=== PATIENT | female | born 1950 | race Caucasian/White ===

== ENCOUNTER 2022-03-07 10:08 | Emergency (ER) | payer MEDICARE, SELFPAY ==
[2022-03-07 10:20] VITALS: BP 224/128; PULSE 70; RESP 18; TEMP 36.6; O2SAT 96; BMI 26.9
--- NOTE | 2022-03-07 10:48 | CRLHL7_ITS ---
For Patients: As a result of the Century Cures Act, medical imaging exams and procedure reports are released immediately into your electronic medical record. You may view this report before your referring provider. If you have questions, please contact your health care provider. Indication: Injury and pain Technique: Right wrist 3 view Comparison: None Findings: There is a mildly displaced and slightly comminuted intra-articular fracture of the distal radius involving the metaphysis with slight dorsal impaction as there is neutral alignment of the distal radial articular surface. Small density adjacent to the ulnar styloid. Chronic deformity of the lunate with possible associated fracture, possibly chronic. Multifocal degenerative joint disease. Impression: Acute intra-articular distal radial metaphyseal fracture. Deformity of the lunate which may represent a chronic fracture deformity. Dictated by Nba Parada MD @ 03/07/2022 12:04:06 PM (Electronically Signed)
[2022-03-07] MEDS: ACETAMINOPHEN 500 MG TABLET 1000 MG PO (11:16)
[2022-03-07 12:21] VITALS: BP 223/116; RESP 20; TEMP 36; O2SAT 96
--- NOTE | 2022-03-07 12:41 | ED_ITS ---
HPI - Extremity Injury (Upper) General Date Seen: 03/07/22 Chief Complaint: Extremity Pain/Injury, Upper Stated Complaint: Fell, injured right hand Time Seen by Provider: 03/07/22 10:13 Source: patient and family Mode of arrival: ambulatory Limitations: no limitations History of Present Illness HPI narrative: Patient is a janine 71-year-old female who is the seen today as she had a FOOSH type mechanism of injury to her right hand, she was out at slippery today, and fell on her right dominant hand. She notices swelling on the dorsum part, and inability to really move her wrist, she does not have any injury to her elbow or shoulder or neck, there is no loss of consciousness, or any other injury. This occurred proximally being an hour before coming in MD complaint: injury to: right Onset (ago): hour(s) Other Extremity Injury: Right: wrist Other injuries: none Hand dominance: Right Place: home Severity: mild Relieving factors: none Exacerbating factors: none Context: fall Associated symptoms: denies other symptoms Treatments prior to arrival: cold therapy Related Data Home Medications Medication Instructions Recorded Confirmed lisinopril 40 mg tablet mg 03/07/22 metoprolol succinate 50 mg mg PO 03/07/22 tablet,extended release 24 hr pravastatin 80 mg tablet mg 03/07/22 Allergies Allergy/AdvReac Type Severity Reaction Status Date / Time No Known Drug Allergies Allergy Verified 03/07/22 10:25 Review of Systems Status of ROS: Reports: 6 or more systems reviewed and unremarkable except as noted in History and below PFSH PFS Social History Smoking Status: Former smoker Do you use any of these nicotine containing products: None Second hand tobacco smoke exposure: No How often do you have a drink containing alcohol: never How often do you have six or more drinks on one occasion: Never AUDIT-C Alcohol total score: 0 Non-prescribed substance use: denies use Exam Narrative: Exam Narrative: Patient is a very nice 8-year-old female, is seen in stabilization room 2, her right wrist, is her point of tenderness, there is some dorsal swelling, and really no angulation noted. Her tank charger strength is normal in her right-sided finger abduction 1st finger thumb opposition are all normal radial and brachial pulses are normal, cap refill normal her sensation is all normal, her elbow has full range of motion of flexion extension supination pronation as does her right shoulder, and she has move normal movement of her cervical spine. Const: Vital Signs, click to edit/add: Vital Signs - 24 hr 03/07/22 10:20 03/07/22 12:21 Temperature 98 F 96.8 F L Pulse Rate [Pulse Oximeter] 70 Respiratory Rate 18 20 Blood Pressure [Le ft Upper Arm] 224/128 H 223/116 H Pulse Oximetry 96 96 Oxygen Delivery Me thod Room Air Course Course Hospital Course: X-ray show a nondisplaced non angulated right distal for I radial fracture, there is a question of irregularity of the lunate also, this appears to be chronic, and radiology is also in agreement. Given the how well this fracture is situated, there is no need for manipulation in fact I am going to put her in a removable thumb spica splint, and have her follow up with Orthopedics, with the other caveats of elevation with sling. Will take Tylenol with this. Her blood pressure was significantly elevated which is a chronic finding for hurt she tells me, whenever she goes to the doctor and also when she is in pain. Has no headache chest pain shortness of breath or any other symptoms, and I would recommend follow-up for recheck of her blood pressure at this point. Vital Signs Vital signs: Initial Vital Signs Temperature 98 F 03/07/22 10:20 Temperature Source Temporal Artery Scan 03/07/22 10:20 Pulse Rate 70 03/07/22 10:20 Respiratory Rate 18 03/07/22 10:20 Blood Pressure 224/128 H 03/07/22 10:20 Blood Pressure Mean 160 03/07/22 10:20 Blood Pressure Position Supine 03/07/22 10:20 Pulse Oximetry 96 03/07/22 10:20 Oxygen Delivery Method 03/07/22 10:20 Vital Signs Temperature 98 F 03/07/22 10:20 Pulse Rate 70 03/07/22 10:20 Respiratory Rate 18 03/07/22 10:20 Blood Pressure 224/128 H 03/07/22 10:20 Pulse Oximetry 96 03/07/22 10:20 Oxygen Delivery Method 03/07/22 10:20 Temperature 96.8 F L 03/07/22 12:21 Pulse Rate 70 03/07/22 10:20 Respiratory Rate 20 03/07/22 12:21 Blood Pressure 223/116 H 03/07/22 12:21 Pulse Oximetry 96 03/07/22 12:21 Oxygen Delivery Method 03/07/22 10:20 Discharge Plan Discharge Clinical Impression: Fracture of wrist, Colles' fracture Patient Disposition: Home, Self-Care Condition: Stable Instructions: Arm Fracture in Adults (ED), Wrist Fracture in Adults (ED) Additional Instructions: Follow up appointment scheduled on 03/09 with a 4:10pm arrival time. If you have any questions or need to reschedule, please call [phone]. [facility] [address] [place] [id number] Activity Level: No Restrictions Prescriptions: No Action metoprolol succinate 50 mg tablet extended release 24 hr PO Label Comments: TAKE ONE TABLET BY MOUTH ONE TIME DAILY pravastatin 80 mg tablet Label Comments: TAKE ONE TABLET BY MOUTH ONE TIME DAILY AT BEDTIME lisinopril 40 mg tablet Label Comments: TAKE ONE TABLET BY MOUTH ONE TIME DAILY Follow Up/Referrals: Marina Calhoun MD [Primary Care Provider] - Stand Alone Forms: MyHealth Info Instructions Discharge Comment: Home rest Tylenol
== END 2022-03-07 13:06 | disposition home or self-care (01) ==
PROVIDERS: Emergency Provider Family Medicine; PCP Family Medicine
DX: S52.531A Colles' fracture of right radius, initial encounter for closed fracture (principal); W00.0XXA Fall on same level due to ice and snow, initial encounter; Y93.9 Activity, unspecified; Y92.9 Unspecified place or not applicable; Y99.9 Unspecified external cause status
CPT/HCPCS: 73110; 99283; 99284; A9270

== ENCOUNTER 2022-05-11 13:30 | Outpatient (RCR) | payer MEDICARE, SELFPAY ==
--- NOTE | 2022-05-04 15:32 | OT.OPOE ---
OT Outpatient Ortho Eval OT Outpatient Ortho Eval Start: 05/04/22 07:08 Freq: Status: Active Protocol: Document 05/04/22 07:08 AMB (Rec: 05/04/22 15:25 AMB [id number]) E-signed By Marianne Dias, OTR/L, CLT, CHILD NEUROLOGIST OT OP Ortho Eval Details Type Type Eval Complexity Low Insurance Information Insurance Information Medicare B Outpatient History/Precautions Current Condition/Medical Diagnosis Referring Provider Dr Barragan Treatment Diagnosis RUE wrist fx Date of Onset 03/07/23 Medical Conditions Depression,HTN,Metal Implants, Arthritis Other Conditions Medications: lisinopril mg metoprolol succinate ER mg PO oxycodone 1-2 tabs orally every 4-6 hours PRN; pravastatin mg PMH (copied from ortho chart): Active Problems (Updated 04/27 @ 13:25 by Rosalie Dove ([facility]), [employer]) 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 Social History Employment Status Retired Oriented Mental Status No Concerns Mental Status Comments Pt feels she is doing ok but very down, states she has been on a streak of bad luck ever since her in October, then she lost her cat, [place], needs to sell her home since it is too much work for her alone, and now she broke her wrist. Ortho Subjective Subjective Subjective Pt slipped on the ice, falling on her RUE on 03/07/22. Pt was seen in ER and casted. Pt has had f/u with ortho, referred to OT for eval and treat / rehabilitation of her RUE. Pt states over-all, her pain is fairly well managed and she's getting by ok, her son helps her out. Pain Assessment Pain Present Pain Present Pain Reported Location Right Wrist Description Dull, Achy,Throbbing Intensity 4 Elbow Goniometric Elbow Right Testing Position Sitting Active Flexion (135-150 degrees) 140 Active Extension (0 degrees) 0 H Active Pronation 35 Active Supination 60 Wrist Goniometric Wrist Right Active Flexion (70-90 degrees) 40 L Active Extension (60-70 degrees) 35 L Active Ulnar Deviation (20-30 degrees) 20 Active Radial Deviation (15-20 degrees) 10 L Goniometric Comments Goniometric Comments Goniometric Comments 05/04/22 Pt is able to complete opposition to the tip of the 5th digit and a composite fist to -.5cm from tip of 3rd digit to DPC. Edema Assessment Additional Information Comments 05/04/22 Mild swelling is appreciated throughout the RUE hand and wrist. OT Objective Data Hand Hand Dominance Right OT Problems Problems Problems Decreased Strength,Decreased Range of Motion,Decreased Dexterity,Decreased Fine Motor ,Decreased Coordination, Lifting,Gripping,Pinching Other Problems Writing,Opening Containers, Dressing Patient Potential Good Assessment Assessment Assessment Pt presents to OT with pain, swelling, weakness and limited AROM of the RUE which impairs her independence with self care and IADLs. Pt will benefit from skilled OT interventions to address limitations and restore full, pain-free use of her RUE. Occupational Therapy Treatment Plan - OP Potential Rehabilitation Potential Good Set Goals Goals Set with Patient Yes Goals Goals 1. Pt will be independent and compliant with HEP in order to resume full, pain-free use of the involved UE. 3 weeks 2. Pt will demonstrate full, pain-free AROM of the involved UE in order to improve ability to grasp and hold. 6 weeks 3. 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 8 weeks. Target Date 08/01/22 Progress set Treatment Plan Treatment Plan Evaluation,Edema Control,Joint Mobilization,Manual Therapy, Splinting,Therapeutic Exercise ,Therapeutic Activities,Self- Care/Home Management,Education Expected Frequency 1-2x Week Expected Duration 6-8 Weeks Certification Certification I Certify That: Therapy Services Provided, Therapy Plan Established, Therapy Plan Reviewed Recertification Information Recertification Information Initial Certification Date 05/04/22 Recertification Due Date 08/02/22 Reasons to Continue Skilled Therapy Initiated OT today for rehabilitation of RUE secondary to pain, weakness and limited AROM following DR paula. Rehabilitation Potential Good Continued Plan of Care and Interventions See above for POC Provider Signature Shows Agreement With POC & Medical Necessity Physician Comment/Change Comment or Changes Physician NPI Number #
== END 2022-10-12 23:59 | disposition home or self-care (01) ==
PROVIDERS: PCP Family Medicine; Visit Provider Orthopaedic Surgery
DX: S62.109A Fracture of unspecified carpal bone, unspecified wrist, initial encounter for closed fracture (principal); Z51.89 Encounter for other specified aftercare
CPT/HCPCS: 97110; 97140; 97165; X5282

== ENCOUNTER 2022-09-18 12:22 | Observation (INO) | payer MEDICARE, SELFPAY ==
[2022-09-18 12:39] VITALS: BP 200/119; PULSE 70; RESP 18; TEMP 36.6; O2SAT 98; BMI 28.3
--- NOTE | 2022-09-18 12:57 | CRLHL7_ITS ---
For Patients: As a result of the Century Cures Act, medical imaging exams and procedure reports are released immediately into your electronic medical record. You may view this report before your referring provider. If you have questions, please contact your health care provider. Indication: Fall Comparison: None available. Technique: AP, Lateral, and Oblique views left ankle were obtained Findings: There is a minimally displaced fracture of the distal fibula with likely additional nondisplaced fracture through the medial malleolus and tip of the fibula. The ankle mortise is symmetrical. The talar dome is smooth and intact. The joint spaces are otherwise grossly preserved. Moderate malleolar soft tissue swelling. Impression: Moderate malleolar soft tissue swelling with displaced fractures of the distal fibula and tip of the medial malleolus. Dictated by Darrion Jacinto MD @ 09/18/2022 2:40:29 PM (Electronically Signed)
[2022-09-18 13:39] VITALS: BP 211/109; PULSE 66; RESP 18; O2SAT 98
--- NOTE | 2022-09-18 13:45 | ED_ITS ---
HPI - General Adult General Date Seen: 09/18/22 Chief complaint: Extremity Pain/Injury, Lower Stated complaint: fell, L ankle injury Time Seen by Provider: 09/18/22 13:27 Source: patient Mode of arrival: ambulatory Limitations: no limitations History of Present Illness HPI narrative: Patient is a 71-year-old woman who was playing with her small dog outside, slipped on some wet grass and injured her left ankle. Presents with pain and swelling primarily in the lateral ankle. No more proximal symptoms, no numbness or loss of function, no other injuries. Related Data Home Medications Medication Instructions Recorded Confirmed lisinopril 40 mg tablet mg 03/07/22 06/12/22 metoprolol succinate 50 mg mg PO 03/07/22 06/12/22 tablet,extended release 24 hr pravastatin 80 mg tablet mg 03/07/22 06/12/22 Allergies Allergy/AdvReac Type Severity Reaction Status Date / Time hydrocodone AdvReac Headache Verified 06/12/22 14:12 ibuprofen AdvReac Headache Verified 06/12/22 14:12 Review of Systems Status of ROS: Reports: 6 or more systems reviewed and unremarkable except as noted in History and below [facility] Medical History (Updated 09/18/22 @ 15:19 by Jaylyn Alcocer MD) Fracture of distal end of radius ?S52.509A - Unspecified fracture of the lower end of unspecified radius, initial encounter for closed fracture (ICD-10) High cholesterol ?E78.00 - Pure hypercholesterolemia, unspecified (ICD-10) High blood pressure ?I10 - Essential (primary) hypertension (ICD-10) Surgical History (Updated 09/18/22 @ 15:28 by Kelley Perez ~ [facility], [facility]) History of carpal tunnel surgery of right wrist (08/31/04) ?Z98.890 - Other specified postprocedural states (ICD-10) 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 In general, alert, well-appearing woman, looks younger than her stated age. Extremities: Left ankle shows mild diffuse swelling, tenderness over the lateral malleolus. Distal pulses intact, CMS normal. Skin is warm and dry, intact. Const: Vital Signs, click to edit/add: Vital Signs - 24 hr 09/18/22 12:39 09/18/22 13:39 Temperature 97.9 F Pulse Rate [Pulse Oximeter] 70 66 Respiratory Rate 18 18 Blood Pressure [Le ft Upper Arm] 200/119 H 211/109 H Pulse Oximetry 98 98 Oxygen Delivery Me thod Room Air Room Air Documenting provider has reviewed patient's vital signs: yes Course Course Hospital Course: X-rays of the left ankle by my review show a minimally displaced fracture of the distal fibula, and a non-diplaced fracture of the tip of the medial malleolus. Final radiology read is as follows: Impression: Moderate malleolar soft tissue swelling with displaced fractures of the distal fibula and tip of the medial malleolus. She is placed in a cam walker here. I discussed her case with Orthopedics, they feel she will need surgical repair and strict nonweightbearing status which I not think she will be able to manage at home; she is in agreement with this. Plan will be admission to the hospital overnight with hopefully surgical repair tomorrow. Vital Signs Vital signs: Initial Vital Signs Temperature 97.9 F 09/18/22 12:39 Temperature Source Temporal Artery Scan 09/18/22 12:39 Pulse Rate 70 09/18/22 12:39 Respiratory Rate 18 09/18/22 12:39 Blood Pressure 200/119 H 09/18/22 12:39 Blood Pressure Mean 146 H 09/18/22 12:39 Blood Pressure Position Supine 09/18/22 12:39 Pulse Oximetry 98 09/18/22 12:39 Oxygen Delivery Method Room Air 09/18/22 12:39 Vital Signs Temperature 97.9 F 09/18/22 12:39 Pulse Rate 70 09/18/22 12:39 Respiratory Rate 18 09/18/22 12:39 Blood Pressure 200/119 H 09/18/22 12:39 Pulse Oximetry 98 09/18/22 12:39 Oxygen Delivery Method Room Air 09/18/22 12:39 Temperature 97.9 F 09/18/22 12:39 Pulse Rate 66 09/18/22 13:39 Respiratory Rate 18 09/18/22 13:39 Blood Pressure 211/109 H 09/18/22 13:39 Pulse Oximetry 98 09/18/22 13:39 Oxygen Delivery Method Room Air 09/18/22 13:39 Discharge Plan Discharge Clinical Impression: Bimalleolar ankle fracture Patient Disposition: Admitted As Inpatient Condition: Stable
--- NOTE | 2022-09-18 14:00 | W.PC.EDHO ---
Primary Language: Preferred Language: Orientation Status: [] Alert & Oriented [] Slight Confusion [] Known Dx Dementia Transfers By: [] Assist of 1 [] Assist of 2 [] Lift Description of Symptoms ED Triage Present Problem playing with dog, grass was wet and slipped and Description fell, injured L ankle ED Triage Date of Onset of 09/18/22 Symptoms Pain Pain Description [Left Ankle] Acute Pain Intensity [Left Ankle] 7 Pain Intensity [Left Ankle] 4 Pain Scale Used [Left Ankle] Numeric (1 - 10) Oxygen Administration Pulse Oximetry 98 Pulse Oximetry 98 Oxygen Delivery Method Room Air Oxygen Delivery Method Room Air
--- NOTE | 2022-09-18 14:01 | ED.NURSE ---
CAM walker is on the left lower leg.rechecked the BP 211/109
--- NOTE | 2022-09-18 15:59 | ED.NURSE ---
report called, pt will transfer to room 256 via wheelchair with belongings.
--- NOTE | 2022-09-18 17:11 | PM.IMHP1 ---
Hospitalist- H&P: HPI History of Present Illness Time Seen by Provider: 16:55 Date Seen: 09/18/22 Chief complaint: fell, L ankle injury Narrative: Linnea Prince is a 71 year old female with h/o HTN, nephrectomy for RCC, and osteoporosis who slipped on the wet grass sustaining injury to left lower leg. She had gone outside to play with her new puppy, whose been with her for a week. She slipped on the wet grass, falling to the ground, and immediately had pain in left lower leg. She almost couldn't get up, but eventually did and got to the house and called her neighbor. She denies hitting her head or LOC. Review of Systems Status of ROS: Reports: 10 or more systems reviewed and unremarkable except as noted in History and below Narrative: Walks length of driveway (just under 0.5 mi) and back several times a day. Breathes heavy, but denies SOB or CP with this activity. 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 - Post-traumatic osteoarthritis, unspecified wrist (ICD-10) Fracture of wrist ?S62.109A - Fracture of unspecified carpal bone, unspecified wrist, initial encounter for closed fracture (ICD-10) Pulmonary nodule ?R91.1 - Solitary pulmonary nodule (ICD-10) Renal cell carcinoma ?C64.9 - Malignant neoplasm of unspecified kidney, except renal pelvis (ICD-10) Glenohumeral arthritis ?M19.019 - Primary osteoarthritis, unspecified shoulder (ICD-10) Vitamin D deficiency ?E55.9 - Vitamin D deficiency, unspecified (ICD-10) Esophageal reflux ?K21.9 - Gastro-esophageal reflux disease without esophagitis (ICD-10) Tobacco use disorder ?F17.200 - Nicotine dependence, unspecified, uncomplicated (ICD-10) Osteoporosis ?M81.0 - Age-related osteoporosis without current pathological fracture (ICD-10) Fracture of distal end of radius ?S52.509A - Unspecified fracture of the lower end of unspecified radius, initial encounter for closed fracture (ICD-10) High cholesterol ?E78.00 - Pure hypercholesterolemia, unspecified (ICD-10) High blood pressure ?I10 - Essential (primary) hypertension (ICD-10) Surgical History (Updated 09/18/22 @ 16:40 by Emmie Rajan MD) H/O right nephrectomy (~04/05/11) ?Z90.5 - Acquired absence of kidney (ICD-10) Hx of colonoscopy ?Z98.890 - Other specified postprocedural states (ICD-10) History of carpal tunnel surgery of right wrist (08/31/04) ?Z98.890 - Other specified postprocedural states (ICD-10) 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. She feels lonely. Son lives in [facility]. Dtr lives in [place]. Worked in [employer] department. Quit smoking 2017. Denies alcohol. Denies recreational drug use. DNR/DNI. Smoking Status: Former smoker Do you use any of these nicotine containing products: None Second hand tobacco smoke exposure: No How often do you have a drink containing alcohol: never How often do you have six or more drinks on one occasion: Never AUDIT-C Alcohol total score: 0 Non-prescribed substance use: denies use service: No Meds Home Medications and Allergies Home Medications Medication Instructions Recorded Confirmed Type lisinopril 40 mg tablet 40 mg PO DAILY 03/07/22 09/18/22 History metoprolol succinate 50 mg 50 mg PO DAILY 03/07/22 09/18/22 History tablet,extended release 24 hr pravastatin 80 mg tablet 80 mg PO HS 03/07/22 09/18/22 History amlodipine 5 mg tablet 5 mg PO DAILY 09/18/22 09/18/22 History inrubpt-hxxspcyymycko-tukollpn 250 1 tab PO Q6H PRN 09/18/22 09/18/22 History mg-250 mg-65 mg tablet cholecalciferol (vitamin D3) 50 50 mcg PO DAILY 09/18/22 09/18/22 History mcg (2,000 unit) tablet (Thera-D) omeprazole 20 mg capsule,delayed 20 mg PO DAILY 09/18/22 09/18/22 History release Home Medication Comments: Went off amlodipine several months ago, but has noticed her BP has been high at times since then and was going to talk with her PCP about restarting it. Allergies Allergy/AdvReac Type Severity Reaction Status Date / Time hydrocodone AdvReac Headache Verified 06/12/22 14:12 ibuprofen AdvReac Headache Verified 06/12/22 14:12 Exam Narrative: Exam Narrative: General: No acute distress. Awake alert oriented x3. HEENT: Normocephalic atraumatic, pupils equally round and reactive to light and accommodation. Oropharynx clear. Mucous membranes are moist. No cervical lymphadenopathy, thyromegaly or carotid bruits. No JVD. Cardiovascular: Regular rate and rhythm. No murmurs, gallops, or rubs. Chest: No increased work of breathing. Clear to auscultation bilaterally. No crackles or wheezes. Abdomen: Bowel sounds present. Soft, nondistended, nontender. No hepatosplenomegaly or masses. Extremities: Left lower extremity is in a boot, this was not removed. Trace edema at ankle of LLE, no edema of RLE, no cyanosis or clubbing. Skin: No jaundice, no pallor, no rashes. Const: Vital Signs, click to edit/add: Vital Signs - 24 hr 09/18/22 12:39 09/18/22 13:39 Temperature 97.9 F Pulse Rate [Pulse Oximeter] 70 66 Respiratory Rate 18 18 Blood Pressure [Le ft Upper Arm] 200/119 H 211/109 H Pulse Oximetry 98 98 Oxygen Delivery Me thod Room Air Room Air Documenting provider has reviewed patient's vital signs: yes Hospitalist - H&P: Result Labs Labs: Ordering Physician: Jaylyn Alcocer M.D. Date of Service: 09/18/22 Procedure(s): XR ankle LT min 3V Accession Number(s): [id number] cc: Jaylyn Alcocer M.D.; Marina Calhoun M.D.~ For Patients: As a result of the 21st Century Cures Act, medical imaging exams and procedure reports are released immediately into your electronic medical record. You may view this report before your referring provider. If you have questions, please contact your health care provider. Indication: Fall Comparison: None available. Technique: AP, Lateral, and Oblique views left ankle were obtained Findings: There is a minimally displaced fracture of the distal fibula with likely additional nondisplaced fracture through the medial malleolus and tip of the fibula. The ankle mortise is symmetrical. The talar dome is smooth and intact. The joint spaces are otherwise grossly preserved. Moderate malleolar soft tissue swelling. Impression: Moderate malleolar soft tissue swelling with displaced fractures of the distal fibula and tip of the medial malleolus. Dictated by Darrion Jacinto MD @ 09/18/2022 2:40:29 PM (Electronically Signed) Assessment and Plan Assessment and plan (1) Bimalleolar ankle fracture: Problem comment: - displaced fractures of the distal fibula and tip of the medial malleolus - Ortho PA called, recommended boot and non weight bearing. Will see in am to discuss surgery vs NWB and monitor. - Will make NPO p MN in case of surgery. Status: Acute (2) Osteoporosis: Problem comment: Was on Fosamax for many years, discontinued by PCP a few years ago Status: Chronic (3) High blood pressure: Problem comment: - From [facility] records: improving after nephrectomy - Continue lisinopril and metoprolol. Restart amlodipine. Monitor. Status: Chronic
[2022-09-18] MEDS: OXYCODONE 5 MG TABLET PO ×2 (17:27→21:40)
[2022-09-18 18:34] VITALS: BP 210/128; PULSE 88; RESP 14; TEMP 36.4; O2SAT 97
[2022-09-18 19:00] VITALS: BP 191/99; PULSE 63; RESP 18; TEMP 36.7; O2SAT 97
--- NOTE | 2022-09-18 19:44 | PC.NURSE ---
Nursing Care Hours: [id number] Pt this shift arrived from ED in wheelchair. Pivot transfer tolerated well into bed or BSC. No c/o pain until foot up on bed, c/o pain in back of heel, rating 5/10. Oxycodone given per eMAR. L leg elevated above heart level. Severe HTN of 210/128, repeated x3 with similar results. No c/o headache or chest pain. Deep breathing and relaxation techniques taught. Dinner ordered. Void x1. Pt states BM yesterday. Pt emotional during admission d/t recent loss of and a series of bad luck. Pt states I just don't know how much more a person can take. Recognizes support group of friends and family.
[2022-09-18] MEDS: PRAVASTATIN SODIUM 20 MG TABLET 80 MG PO (20:25)
[2022-09-18] MEDS: SODIUM CHLORIDE 0.9 % (FLUSH) 10 ML SYRINGE 5 ML IVF (22:40)
[2022-09-18 23:00] VITALS: BP 203/107; PULSE 66; RESP 20; TEMP 36.7; O2SAT 97
[2022-09-19] MEDS: OXYCODONE 5 MG TABLET PO ×4 (01:40→14:11)
[2022-09-19 04:39] VITALS: BP 140/82; PULSE 65; RESP 16; TEMP 36.6; O2SAT 95
--- NOTE | 2022-09-19 06:30 | PC.NURSE ---
End of shift: Pt A&O. Pleasant and cooperative. Pt was hypertensive at?2300 BP reading 203/107. Manual BP taken reading 160/92. Chandler updated, no change at this time. Leg elevated and ice to ankle. Pt rating pain 4-6/10. PRN oxycodone given per eMAR. Denies n/v. NWB, pivot to commode. Pt has boot on. has been NPO since 0000.?
[2022-09-19 07:00] VITALS: BP 120/74; PULSE 61; RESP 16; TEMP 36.6; O2SAT 96
[2022-09-19] MEDS: lisinopriL 20 MG TABLET 40 MG PO (08:32)
[2022-09-19] MEDS: OMEPRAZOLE 20 MG CAPSULE DR PO (08:32)
[2022-09-19] MEDS: METOPROLOL SUCCINATE (XL) 50 MG TAB PO (08:32)
[2022-09-19] MEDS: SODIUM CHLORIDE 0.9 % (FLUSH) 10 ML SYRINGE 5 ML IVF (08:33)
[2022-09-19] MEDS: AMLODIPINE 5 MG TABLET PO (08:33)
[2022-09-19 11:00] VITALS: BP 136/76; PULSE 67; RESP 16; TEMP 36.8; O2SAT 96
--- NOTE | 2022-09-19 11:00 | PM.DS1 ---
DS: Providers Provider Date Seen: 09/19/22 Date of admission: 09/18/22 16:10 Primary care physician: Marina Calhoun MD Admitting Clinician: Emmie Rajan MD Consults: PT, Ortho Attending Physician on discharge: Kerrie Jackson MD Date of Discharge: 09/19/22 DS: Diagnosis Discharge Diagnosis (1) Bimalleolar ankle fracture: Status: Acute Problem details: - displaced fractures of the distal fibula and tip of the medial malleolus - Ortho consulted, nonoperative. Will d/c home to sister's house in boot + walker, f/u with Ortho (2) High blood pressure: Status: Chronic Problem details: - From [facility] records: improving after nephrectomy - BP elevated in ED, Amlodipine restarted and home medications (Lisinopril and Metoprolol) continued; much improved on hospital day #1 DS: Summary Hospital Course Hospital Course: Linnea is a delightful 71yo patient who presented to the hospital after a mechanical fall at home (tripped over her new puppy) and injured her L ankle. She did not have LOC or other injuries, imaging revealed a bimalleolar L ankle fracture. Orthopedic Surgery consulted and recommended CAM walker, injury determined to be nonoperative. Patient had adequate pain control on hospital Day #1, was able to ambulate with our PT team, utilizing her boot + walker, and requested discharge home (will go to her sister's house). She will have Orthopedic Surgery f/u in 1-2 weeks. Comorbidities include HTN (suboptimal control with BP >200/100 in ED); her home medications (Lisinopril and Metoprolol) were continued and Amlodipine re-added (previously discontinued) to regimen. BP on discharge is 136/76. Status at Discharge Functional status at discharge: uses cane/walker Overall status at discharge: patient is progressing back to baseline Time Spent with Patient Time attestation: Total time spent providing and/or coordinating discharge services: Time spent: Greater than 30 minutes Specific discharge activities: Care coordination with specialty consultants, medication reconciliation Exam Narrative: Exam Narrative: GEN: Alert and oriented, answering questions appropriately, nontoxic HEENT: EOMIs bilaterally, no scleral icterus CV: RRR, No concerning murmurs, rubs, or gallops R: LCTA bilaterally without concerning wheezing, air movement adequate Ext: wearing CAM boot on L foot. + capillary refill of L toes, normal ROM Skin: No concerning skin lesions or rashes on exposed skin Neuro: No focal deficits Psych: Appropriate Const: Vital Signs, click to edit/add: Vital Signs - 24 hr 09/18/22 12:39 09/18/22 13:39 09/18/22 18:34 Temperature 97.9 F 97.6 F Pulse Rate [Pulse Oximeter] 70 66 Pulse Rate [Right Pulse Oximeter] 88 Respiratory Rate 18 18 14 Blood Pressure [Le ft Upper Arm] 200/119 H 211/109 H Blood Pressure [Ri ght Arm] 210/128 H Pulse Oximetry 98 98 97 Oxygen Delivery Me thod Room Air Room Air Room Air 09/18/22 19:00 09/18/22 23:00 09/19/22 04:39 Temperature 98.0 F 98.1 F 97.9 F Pulse Rate [Pulse Oximeter] Pulse Rate [Right Pulse Oximeter] 63 66 65 Respiratory Rate 18 20 16 Blood Pressure [Le ft Upper Arm] Blood Pressure [Ri ght Arm] 191/99 H 203/107 H 140/82 H Pulse Oximetry 97 97 95 Oxygen Delivery Me thod Room Air Room Air Room Air 09/19/22 07:00 09/19/22 07:00 Temperature 97.9 F Pulse Rate [Pulse Oximeter] Pulse Rate [Right Pulse Oximeter] 61 61 Respiratory Rate 16 16 Blood Pressure [Le ft Upper Arm] Blood Pressure [Ri ght Arm] 120/74 Pulse Oximetry 96 Oxygen Delivery Me thod Room Air Discharge Plan Discharge Disposition: Home, Self-Care Date of Admission: 09/18/22 16:10 Attending Provider on Discharge: Kerrie Jackson Consulting Providers: Gretel Dunn Primary Care Provider: Marina Calhoun Condition: Stable Anticipated Discharge Date/Time: 09/19/22 10:12 Discharge Medications: New oxycodone 5 mg Tablet 5 mg PO Q6H PRNQty: 20 0RF aspirin 81 mg tablet,delayed release (DR/EC) 81 mg PO DAILY Qty: 30 0RF Continued amlodipine 5 mg tablet 5 mg PO DAILY omeprazole 20 mg capsule,delayed release(DR/EC) 20 mg PO DAILY cholecalciferol (vitamin D3) [Thera-D] 50 mcg (2,000 unit) tablet 50 mcg PO DAILY pixtxzw-sqrgxpdhditmi-johiztdt 250-250-65 mg tablet 1 tab PO Q6H PRN Patient Comments: takes 2-3 times a week metoprolol succinate 50 mg tablet extended release 24 hr 50 mg PO DAILY Patient Comments: TAKE ONE TABLET BY MOUTH ONE TIME DAILY pravastatin 80 mg tablet 80 mg PO HS Patient Comments: TAKE ONE TABLET BY MOUTH ONE TIME DAILY AT BEDTIME lisinopril 40 mg tablet 40 mg PO DAILY Patient Comments: TAKE ONE TABLET BY MOUTH ONE TIME DAILY Discharge Orders: Discharge Order (Routine); Ordered 09/19/22 Ordered By: Kerrie Jackson Patient Education: Aspirin (By mouth), Oxycodone, Rapid Release (By mouth), Ankle Fracture (DC) Additional Instructions: Walking boot, weight bear as tolerated with walker. Elevate as much as possible. Ice several times a day over the next few days may help with swelling. Orthopedic follow-up as scheduled. For pain I would schedule Tylenol (1000mg every 8 hours) with Oxycodone as needed in between. 81mg Aspirin daily for the next month and Luis Miguel hose as tolerated. Activity Level: Weight Bearing as Tolerated and Use Walker Activity Detail: Wear boot Discharge Diet: Regular Follow Up Appointments: Gretel Dunn PA-C [[facility]] - 09/29/22 10:00 am ([facility] for follow-up. ) Marina Calhoun MD [Primary Care Provider] - (as needed) Forms: [facility] Info Instructions
[2022-09-19] MEDS: ACETAMINOPHEN 500 MG TABLET 1000 MG PO (12:53)
--- NOTE | 2022-09-19 14:00 | PC.NURSE ---
Patient vitally stable. All concerns addressed. AVS reviewed. Patient discharged to home with son.
--- NOTE | 2022-09-19 15:48 | P.ORCN_ITS ---
History of Present Illness HPI Time Seen by Provider: 10:00 Date Seen: 09/19/22 Consult date: 09/19/22 Requesting physician: Emmie Rajan Chief complaint: fell, L ankle injury Narrative: Linnea is a very pleasant 71-year-old female who is hospitalized with left ankle fracture. She had gone outside to play with her new puppy, she slipped on the wet grass falling to the ground and had immediate pain in the left ankle. She was able to get herself to the house and call her neighbor. At [facility] x-rays were taken and bimalleolar ankle fracture on the left was diagnosed. She was placed in a Cam walker. 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 - Post-traumatic osteoarthritis, unspecified wrist (ICD-10) Fracture of wrist ?S62.109A - Fracture of unspecified carpal bone, unspecified wrist, initial encounter for closed fracture (ICD-10) Pulmonary nodule ?R91.1 - Solitary pulmonary nodule (ICD-10) Renal cell carcinoma ?C64.9 - Malignant neoplasm of unspecified kidney, except renal pelvis (ICD- 10) Glenohumeral arthritis ?M19.019 - Primary osteoarthritis, unspecified shoulder (ICD-10) Vitamin D deficiency ?E55.9 - Vitamin D deficiency, unspecified (ICD-10) Esophageal reflux ?K21.9 - Gastro-esophageal reflux disease without esophagitis (ICD-10) Tobacco use disorder ?F17.200 - Nicotine dependence, unspecified, uncomplicated (ICD-10) Osteoporosis ?M81.0 - Age-related osteoporosis without current pathological fracture (ICD- 10) Fracture of distal end of radius ?S52.509A - Unspecified fracture of the lower end of unspecified radius, initial encounter for closed fracture (ICD-10) High cholesterol ?E78.00 - Pure hypercholesterolemia, unspecified (ICD-10) High blood pressure ?I10 - Essential (primary) hypertension (ICD-10) Surgical History (Updated 09/18/22 @ 16:40 by Emmie Rajan MD) H/O right nephrectomy (~04/05/11) ?Z90.5 - Acquired absence of kidney (ICD-10) Hx of colonoscopy ?Z98.890 - Other specified postprocedural states (ICD-10) History of carpal tunnel surgery of right wrist (08/31/04) ?Z98.890 - Other specified postprocedural states (ICD-10) 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. She feels lonely. Son lives in [facility]. Dtr lives in [place]. Worked in [employer]. Quit smoking 2017. Denies alcohol. Denies recreational drug use. DNR/DNI. What is your current living situation: I presently have a place to live Problems where you live: no known problems Problems where you live details: none In the past 12 months, utilities in danger of being shut off: no In the past 12 mos, have been you worried that your food would run out before you had money to buy more?: never true In the past 12 mos, the food you bought just didn't last and you didn't have money to buy more?: never true Highest level of school completed/degree received: high school graduate Smoking Status: Former smoker Do you use any of these nicotine containing products: None Second hand tobacco smoke exposure: No How often do you have a drink containing alcohol: never How often do you have six or more drinks on one occasion: Never AUDIT-C Alcohol total score: 0 Non-prescribed substance use: denies use How often does anyone, including family, friends and others, physically hurt you : How often does anyone, including family, friends and others, insult or talk down to you: How often does anyone, including family, friends and others, threaten you with harm: How often does anyone, including family, friends and others, scream or curse at you: service: No Meds Home Medications and Allergies Home Medications Medication Instructions Recorded Confirmed Type lisinopril 40 mg tablet 40 mg PO DAILY 03/07/22 09/18/22 History metoprolol succinate 50 mg 50 mg PO DAILY 03/07/22 09/18/22 History tablet,extended release 24 hr pravastatin 80 mg tablet 80 mg PO HS 03/07/22 09/18/22 History amlodipine 5 mg tablet 5 mg PO DAILY 09/18/22 09/18/22 History hpsjjen-iuvhutlkzrktt-qghsmxjc 250 1 tab PO Q6H PRN 09/18/22 09/18/22 History mg-250 mg-65 mg tablet cholecalciferol (vitamin D3) 50 50 mcg PO DAILY 09/18/22 09/18/22 History mcg (2,000 unit) tablet (Thera-D) omeprazole 20 mg capsule,delayed 20 mg PO DAILY 09/18/22 09/18/22 History release Allergies Allergy/AdvReac Type Severity Reaction Status Date / Time hydrocodone AdvReac Headache Verified 06/12/22 14:12 ibuprofen AdvReac Headache Verified 06/12/22 14:12 Ortho Exam Narrative Exam Narrative: Alert and oriented x3. Patient is in no acute distress. Converses without labored breathing. Hearing is grossly intact. Ambulates with a walker. Examination of the left lower extremity shows soft tissue edema about the ankle. Skin is intact. No sign of infection. No warmth or erythema. No edema of the foot or pretibial area. CMS intact left lower extremity. She is able to slightly dorsiflex and plantar flex the ankle. Tenderness about the medial and lateral malleolus. No blistering is seen. No ecchymosis. Const Vital Signs, click to edit/add: Vital Signs - 24 hr 09/18/22 18:34 09/18/22 19:00 09/18/22 23:00 Temperature 97.6 F 98.0 F 98.1 F Pulse Rate [Right Pulse Oximeter] 88 63 66 Respiratory Rate 14 18 20 Blood Pressure [Right Arm] 210/128 H 191/99 H 203/107 H Pulse Oximetry 97 97 97 Oxygen Delivery Method Room Air Room Air Room Air 09/19/22 04:39 09/19/22 07:00 09/19/22 07:00 Temperature 97.9 F 97.9 F Pulse Rate [Right Pulse Oximeter] 65 61 61 Respiratory Rate 16 16 16 Blood Pressure [Right Arm] 140/82 H 120/74 Pulse Oximetry 95 96 Oxygen Delivery Method Room Air Room Air 09/19/22 11:00 Temperature 98.3 F Pulse Rate [Right Pulse Oximeter] 67 Respiratory Rate 16 Blood Pressure [Right Arm] 136/76 Pulse Oximetry 96 Oxygen Delivery Method Room Air Results Diagnostic results Additional Comments: X-rays are taken of the left ankle AP, lateral, oblique views taken 09/18/2022 these show Moderate malleolar soft tissue swelling with displaced fractures of the distal fibula and tip of the medial malleolus. Assessment and Plan Assessment and plan (1) Bimalleolar ankle fracture: Problem comment: - displaced fractures of the distal fibula and tip of the medial malleolus - Ortho consulted, nonoperative. Will d/c home to sister's house in, f/u with Ortho Status: Acute Assessment and Plan: X-rays of the left ankle and patient's history and physical exam were discussed with Dr. Barragan. He and I both agree this can be treated non operatively in a short-leg splint and then a cast. Patient will return to the clinic next week and new x-rays will be taken out of the splint. If The fracture remains anatomic we will continue splint or short-leg cast for another week then re-x-ray. If at that time the fractures continue to be anatomic and without displacement, then casting for 4 more weeks. Her Cam walker was not comfortable. Was pressing on the lateral aspect of her foot ossific leave the distal 5th metatarsal. The Cam walker was a size small and it was too big for her as well. Boot was also pressing on her lateral malleolus. I expect more swelling to occur over the next week or so, therefore switched her to a short-leg Rosendo Cole splint. She felt this splint was much more comfortable than the Cam walker. She will keep the splint clean and dry. Orthopedics will see her in 1 week. She will call our office if she has any questions or concerns. She will use a walker and remain nonweightbearing for 6 weeks post op. She will ice and elevate the left lower extremity as needed. Linnea and I discussed that had any point if her fracture displaces, she would likely knee open reduction internal fixation. She understands and agrees and is happy with non operative treatment for the time being. All questions were answered. Of note, I have asked her to bring her Cam walker at the 6 week post injury visit. She may need a different Cam walker at that time, if we have a size extra-small in clinic. Note, dictation performed with voice recognition, and as a result, wrong word or sound like substitutions may have occurred. There may be areas in the script that have gone on detected. Please consider this when interpreting information found in the chart. Total time spent: Total time spent is greater than 50% in coordination of care (as documented) at patient's floor/unit and/or counseling patient: (2) High blood pressure: Problem comment: - From [facility] records: improving after nephrectomy - BP elevated in ED, Amlodipine restarted and home medications (Lisinopril and Metoprolol) continued; much improved on hospital day #1 Status: Chronic Total time spent: Total time spent is greater than 50% in coordination of care (as documented) at patient's floor/unit and/or counseling patient:
== END 2022-09-19 14:00 | disposition home or self-care (01) ==
LOC: ED 15:19 → MEDSURG 16:10
PROVIDERS: Admitting Provider Family Medicine; Emergency Provider Emergency Medicine; PCP Family Medicine; Visit Provider Family Medicine
DX: S82.842A Displaced bimalleolar fracture of left lower leg, initial encounter for closed fracture (principal); M81.0 Age-related osteoporosis without current pathological fracture; I10 Essential (primary) hypertension; K21.9 Gastro-esophageal reflux disease without esophagitis; E78.5 Hyperlipidemia, unspecified; M25.472 Effusion, left ankle; M25.572 Pain in left ankle and joints of left foot; Z79.82 Long term (current) use of aspirin; W19.XXXA Unspecified fall, initial encounter; Z98.890 Other specified postprocedural states; Z96.612 Presence of left artificial shoulder joint; Z96.641 Presence of right artificial hip joint; Z87.891 Personal history of nicotine dependence; Z90.5 Acquired absence of kidney
CPT/HCPCS: 29515; 73610; 97116; 97161; 99284; A9270; G0378

== ENCOUNTER 2023-01-19 13:00 | Outpatient (RCR) | payer MEDICARE, SELFPAY ==
--- NOTE | 2022-11-03 17:40 | PT.OPEX ---
PT [place] Outpatient Eval PT [facility] Outpatient Eval Start: 11/03/22 16:52 Freq: Status: Active Protocol: Document 11/03/22 17:01 RON (Rec: 11/03/22 17:34 RON [id number]) E-signed By Francesca Pearce DPT Physical Therapy Outpatient Evaluation Insurance Information Recert Due Date 02/01/23 Insurance Name [employer] Medical Diagnosis L bimalleolar ankle fx, non- surgical Treating Diagnosis s/p fall with L bimalleolar ankle fx with L ankle pain/ swelling, impaired L ankle ROM , impaired L ankle mobility/ strength, limping/antalgic gait with CAM boot on L LE using FWW with recent progression to WBAT. Subjective Subjective Patient reports falling the end of August on the wet grass when trying to harlan her puppy . She fx L ankle. States she was able to get back up and walk into the house with her puppy. She went to the ED to have her L ankle assessed. Xray showed L ankle fx. She was placed in a splint, NWB L LE, with ortho follow up. Ortho placed her in a cast, NWB x 6 weeks. She used a FWW or kneeling scooter to get around. She had follow up with SAROJ Majano and was transitioned to CAM walking boot L LE with WBAT. Patient to use FWW to start and wean away from FWW as able over the next week or 2. Next follow up is in 5-6 weeks. Patient to continue with CAM boot until then. She is using tylenol as needed. Icing on occasion. Wearing tubigrip with CAM boot. States she has been staying with her sister since her injury, planning to return to her home in [place] once she is walking without the walker. Pain rated 2/10. Sleep has been ok. Date of Last Physician Visit 11/01/22 Current Work Status Retired Precautions Treatment Precautions/Contraindications HTN, OA, hx R NADIA Assessment Assessment/Impression Patient is a 71 year old female s/p fall with L bimalleolar ankle fx with L ankle pain/swelling, impaired L ankle ROM, impaired L ankle mobility/strength, limping/ antalgic gait with CAM boot on L LE using FWW with recent progression to WBAT. Pain rated 2/10. Mild swelling L ankle this session. Patient reports some fluctuating swelling now with WBAT in CAM boot. Gait is slow, limping, antalgic in CAM boot L LE using FWW with WBAT L LE. L ankle ROM is tight, limited in all directions after fx with casting x 6 weeks. L ankle AROM DF to neutral, PF to 16 degrees. Strength testing deferred at this time. Patient able to progress with WB and wean away from FWW as able over the next 1-2 weeks. Follow up with PA in 5-6 weeks with plan of progression out of CAM boot at that time. Patient would benefit from skilled PT for pain/swelling management, improved L ankle ROM, improved L ankle mobility /strength, progression of WB, improved gait, balance/ proprioception training, and establishment of HEP. Plan of Care Rehabilitation Potential Good Physical Therapy Goals 1. Decrease/maintain L ankle/ foot pain at less than/equal to 3/10 with progression of WB and daily activities and with the progression of PT activities over the next 6-8 weeks. 2. Improve L ankle ROM to WFL over the next 6-8 weeks for return to normal gait mechanics, reciprocal stair negotiation, and PLF with daily activities. 3. Improve L ankle/LE strength over the next 10-12 weeks for progression of WB, weaning out of CAM boot, return to normal gait without an AD, and for return to PLF with daily activities without flare up of pain. 4. Improve L ankle/LE balance /proprioception over the next 10-12 weeks for return to PLF with daily activities and normal gait without flare up of pain. 5. Patient will be I with HEP within 12 weeks for progression toward above goals, ongoing self management of pain/sx, ongoing self improvements in ROM/strength/ balance/proprioception/gait, and for return to PLF with daily activities without flare up of pain. Coordination/Communication With Referral Source Treatment Plan/Direct Interventions Gait Training,Manual Therapy, Neuromuscular Re-ed, Therapeutic Exercises Frequency/Duration 1x/week Patient Will Be Discharged From Therapy Completion of LTG(s),Skills Plateau,Independent w/HEP, Independently Progressing Evaluation Billing Untimed Code Treatment Minutes 22 Complexity Moderate Certification Information Initial Certification Date 11/03/22 Ending Certification Date 02/01/23 Provider Signature Shows Agreement With POC & Medical Necessity Physician Signature & Date Requested Please Sign/Date Here Physician Comment/Change : Physician NPI Number #
== END 2023-04-09 15:38 | disposition home or self-care (01) ==
PROVIDERS: PCP Family Medicine; Visit Provider Physician Assistant
DX: S82.843A Displaced bimalleolar fracture of unspecified lower leg, initial encounter for closed fracture (principal); Z74.09 Other reduced mobility; R26.89 Other abnormalities of gait and mobility; R53.1 Weakness; Z51.89 Encounter for other specified aftercare
CPT/HCPCS: 97110; 97162

== ENCOUNTER 2023-08-13 14:10 | Outpatient (CLI) | payer MEDICARE, SELFPAY ==
--- NOTE | 2023-08-13 14:30 | MR_ITS ---
[address] [address] Phone:?[phone] Fax:?[phone] Referring Physician Information: Geovanni Valle M.D. [address] [facility] [address] Phone:?[phone] Fax:?[phone] Patient:Chris Prince D.O.B:?1950 Sex:?Female Phone:?[phone] [facility] MRN:?[id number] Exam Date:?08/13/2023 EXAM: MR LUMBAR SPINE WITHOUT CONTRAST CLINICAL INFORMATION: Back pain CORRELATIVE IMAGES: Lumbar radiograph 08/03/2023. TECHNICAL INFORMATION: 1.5T MRI. T1, T2 and STIR sagittal through the lumbar spine with T1 and T2 axial at selected levels. CONTRAST ADMINISTERED: None.?CONTRAST DISCARDED: None. SEDATION: None. INTERPRETATION:?Segmentation and Alignment:?No segmentation anomaly evident. Lumbar lordosis with convex rightward scoliosis. Disc/Operative changes:?Moderate to marked multilevel disc desiccation. L5-S1 there is mild posterior bulging and high signal fissuring without significant central compromise. Mild to moderate chronic foraminal stenosis. No significant facet arthropathy. L4-5, mild vertical disc narrowing with broad right posterolateral to foraminal approximately 5 mm AP disc extrusion with mild right facet arthrosis, small intracanalicular synovial cyst along the ventral margin of the facet joint (series 4 image 9, series 5 image 9) collectively producing moderate to marked right lateral recess and foraminal stenosis with L5 and L4 nerve root impingement. L3-4, marked vertical disc narrowing, desiccation with trace spondylolisthesis, posterior bulging and facet tropism/arthrosis producing moderate to marked central and mild foraminal stenosis. L2-3, marked disc degeneration with annular bulging, mild facet and 3 mm ligamentum flavum hypertrophy producing moderate central stenosis with nerve root crowding. Mild left foraminal stenosis. L1-2, mild disc desiccation with normal annular morphology and no stenosis. Marked T9-10 disc degeneration without cord impingement. Normal annular morphology T10-11 through T12-L1. Sacrum and Sacroiliac joints:?Limited visualized sacrum and sacroiliac joints demonstrate no significant pathology. Conus/distal cord:?No gross lower spinal cord signal pathology evident. No intradural mass or arachnoidal adhesions. Osseous and paraspinous structures:?Bone marrow signal is unremarkable. Paraspinal soft tissues are unremarkable. Right kidney is not visualized in the renal fossa. Left kidney appears grossly normal. CONCLUSION: 1. Advanced L2-3 and L3-4 disc with moderate facet degeneration, with moderate and marked central stenosis respectively. 2. Broad right L4-5 posterolateral to foraminal disc extrusion with L5 and L4 impingement; small right intracanalicular synovial cyst mildly contributes to lateral recess compromise. 3. Marked T9-10 disc degeneration with mild Modic type one endplate changes, no cord compromise. 4. Absent right kidney. RSP Electronically signed on 08/14/2023 10:27:00 AM by Terry Fagan M.D.
== END 2023-08-13 14:11 | disposition home or self-care (01) ==
PROVIDERS: PCP Family Medicine; Visit Provider Orthopaedic Surgery Sports Medicine
DX: M54.9 Dorsalgia, unspecified (principal); M54.16 Radiculopathy, lumbar region; M48.061 Spinal stenosis, lumbar region without neurogenic claudication; M51.34 Other intervertebral disc degeneration, thoracic region; M51.26 Other intervertebral disc displacement, lumbar region
CPT/HCPCS: 72148

== ENCOUNTER 2023-10-05 10:45 | Outpatient (RCR) | payer MEDICARE, SELFPAY ==
--- NOTE | 2023-09-14 13:33 | PT.OPEX ---
PT [place] Outpatient Eval PT [facility] Outpatient Eval Start: 09/14/23 11:15 Freq: Status: Active Protocol: Document 09/14/23 11:16 CRP (Rec: 09/14/23 13:30 CRP [id number]) E-signed By Jacinto Tan PT Physical Therapy Outpatient Evaluation Insurance Information Recert Due Date 12/13/23 Insurance Name Medicare B,[facility] Medical Diagnosis Lumbar radiculopathy Lumbar spondylosis Thoracic spine DDD Referring MD Dr Valle Subjective Subjective Pt reports c/o LBP that goes across the low back and mainly on the R. Pain will go into her hips down the lateral thigh. No numbness or tingling. Pain has been an issue in the back has been an issue for a few years. The hip pain has been an issue for about 3 months. Pain increases when up on her feet and needing to bend. Sitting takes the pain away. Any need to bend like making the bed will increase her pain. Pt has issues with both knees that she does not feel is related to her LBP. No specific treatment. Sleep is fine. Is retired and lives alone in her home. Pain Comments Pre prednisone - 11/02 Current pain 05/05 Current Work Status Retired Objective Other/Pertinent Objective Posture: Active ext pattern Trunk ROM flex min dec, ext mod dec with R LBP, R SB mod dec with R LBP, L min dec, bilat rot mod dec, Pain during R rot Hip ROM: flex R 115, L WNL, ER r 40, L WNL, IR L WNL, Hip ext R lacks 5-10 deg, L lacks 10-15 MMT: myotomes WNL. Poor motor control lumbopelvic flexion. Hip abd 4-/5 bilat. Hip ext 4/ 5 bilat Segmental testing - pain free R rot and L SB lower lumbar spine. L rot and R SB hypomob without pain Functional Test Performed & Score Oswestry 12 Assessment Assessment/Impression Pt presents to the clinic with signs and sxs consistent with lumbar and thoracic spine DDD /DJD and related radicular symptoms bilaterally. Pts presentation is characterized by painful loss of lumbar spine ROM, loss of thoracic spine ROM, poor lumbopelvic motor control, decreased thoracolumbar spine segmental mobility and loss of hip ext bilaterally. Skilled PT is necessary to incorporate ther ex, nm krishna, manual therapy and pt education to decrease pain and improve functional mobility. 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 Pt will be independent with HEP in 6 weeks. 2. Pt will walk her dog with 80% decrease in pain in 10 weeks. 3. 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 Coordination/Communication With Referral Source Treatment Plan/Direct Interventions Joint Mobilization,Manual Therapy,Neuromuscular Re-ed, Self-Care/Home Management, Therapeutic Activities, Therapeutic Exercises Frequency/Duration 1-2x/wk for 12 weeks Patient Will Be Discharged From Therapy Completion of LTG(s),Skills Plateau,Independent w/HEP, Independently Progressing Evaluation Billing Untimed Code Treatment Minutes 40 Complexity Moderate Certification Information Initial Certification Date 09/14/23 Ending Certification Date 12/13/23 Provider Signature Required Yes Provider Signature Shows Agreement With POC & Medical Necessity Physician NPI Number Write NPI# Here Physician Comment/Change : Physician Signature & Date Requested Please Sign/Date Here
== END 2024-02-02 23:59 | disposition home or self-care (01) ==
PROVIDERS: PCP Family Medicine; Visit Provider Orthopaedic Surgery Sports Medicine
DX: M54.16 Radiculopathy, lumbar region (principal); M47.816 Spondylosis without myelopathy or radiculopathy, lumbar region; Z51.89 Encounter for other specified aftercare
CPT/HCPCS: 97110; 97140; 97162